=== PATIENT | female | born 1975 | race Caucasian/White ===

== ENCOUNTER → 2017-01-23 | Outpatient (CLI) | payer OTHER ==
[~2017-01-23] MED LIST: ATV/1 PO; BCPILLS PO; CLR10 PO; LEVO100T PO; MULT-506 PO; PANT40TA PO; POTA10CA28 PO; TOPI200T14 PO; TRAM-10 PO
--- NOTE | 2017-01-23 12:10 | DIAGNOSTIC IMAGING REPORT ---
THORACOLUMBAR SPINE 2 VIEWS CLINICAL HISTORY: LOW BACK PAIN @ [facility] BATTERY SITE COMPARISON STUDY: Lumbar spine fluoroscopic images July 29, 2016. FINDINGS: Spinal cord stimulator is noted with a left sided battery pack. The tip of the stimulator is at the mid T2 level. The electrode likely enters the canal at the T10-T11 level. This appears intact. There are cholecystectomy clips. Bowel gas pattern is normal. Postsurgical findings within the right hemithorax are noted. Vertebral body heights are maintained. Disc spaces are preserved. IMPRESSION: 1. Spinal cord stimulator, as described above. Stimulator appears intact with tip at the T2 level. 2. No significant abnormality of the thoracic or lumbar spine identified by radiography. Electronically signed by: French Fletcher M.D. 01/23/2017 12:08 PM Dictated Date/Time: 01/23/2017 12:04 PM
== END | disposition home or self-care (01) ==
LOC: C.RADBC 11:10
PROVIDERS: ATTEND Physician Assistant
DX: M54.5 Low back pain (principal)

== ENCOUNTER 2017-02-03 12:24 | Day surgery (SDC) | payer OTHER ==
[2017-01-28 14:27] VITALS: Ht 162.6 cm; Wt 88.6 kg
--- NOTE | 2017-01-30 08:45 | History and Physical ---
History & Physical Date of Service Jan 30, 2017. History & Physical Plan of care discussed with Dr. Taylor CHIEF COMPLAINT: Right sided intercostal neuralgia. HISTORY OF PRESENT ILLNESS: Mrs. Macedo is a 40 year old white female that is well known to the [facility] with a history of right sided intercostal neuralgia. The pain started immediately after a right lower lobe lobectomy was performed on 12/18/15. She describes a burning, aching and stabbing pain. Symptoms are aggravated by twisting and bending forwards. Her pain is moderately relieved with laying supine. Pain is rated 3/10 at its best and 7/10 at its worst. She denies any SOB, cough, abdominal pain, flank pain. PAST MEDICAL HISTORY: 1. Hypothyroidism 2. History of kidney stones 3. Migraine headache disorder 4. History of lung cancer 5. History of pneumothorax PAST SURGICAL HISTORY: 1. History of right lower lobe lobectomy 12/18/15 SOCIAL HISTORY: She is single and has 4 children. She lives with her parents. No tobacco, alcohol, or illicit substance use. WORK HISTORY: Currently on unpaid leave. 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 ALLERGIES: None MEDICATIONS: 1. Levothyroxine 100 g tablet daily 2. Ativan 1 mg every 6 hours as needed 3. control pill daily 4. Multivitamin daily 5. Protonix 40 mg daily 6. Potassium chloride 1 tablet daily 7. Topiramate 600 mg daily 8. Tramadol 50 mg 3 times daily as needed REVIEW OF SYSTEMS: Denies any constitutional, cardiac, pulmonary, neurological, GI, , extremity, endocrine, neuro, ENT, dermatological, or musculoskeletal complaints other than stated in HPI PHYSICAL EXAMINATION: VITAL SIGNS: Per admission GENERAL: Mrs. Macedo is a 41 y/o physically deconditioned white female that appears her stated age. Speech and cognition is intact. Mood and affect is appropriate. Sitting quietly in the exam room, in no acute distress. HEAD: Normocephalic; atraumatic. EYES: Pupils are round, equal, and reactive to light; EOM intact. CHEST: Regular chest respiration and excursion. There is tenderness of the intercostal muscles of the right anterior chest wall from approximately rib 6- 8. There is allodynia noted over the intercostal muscles. EXTREMITIES: Moves all extremities appropriately. BACK: Full ROM. There is no midline, SI joint, or facet joint tenderness. There is tenderness along the anchor site. No mobility of the spinal cord stimulator battery. NEURO: CN II-XII grossly intact with no focal deficits noted. Normal gait. SKIN: Well healed surgical incisions located along the mid axillary line superiorly and midclavicular line inferiorly. ASSESSMENT: Right sided intercostal neuralgia status post right lower lobe lobectomy TREATMENT: Mrs. Macedo is a 40 year old that developed right sided intercostal neuralgia immediately after a right lower lobe lobectomy which was performed December of 2015. Patient has failed numerous conservative treatments and subsequently received a spinal cord stimulator with pain relief. Over the last 4 weeks she has lost coverage into the chest wall and started to experience stimulation into her legs. There is reported pain along the left generator/ incision site that started over the same timeframe. X-ray did not show any lead migration. Reprogramming of the stimulator was able to capture coverage of the chest wall. The pain at the generator site is persistent and it has been recommended to revise the battery site as the anchor suture may have broken. Risks and benefits were reviewed with the patient. Procedure was explained and the patient would like to proceed with the procedure.
[~2017-02-03] VITALS: Ht 162.6 cm; Wt 88.6 kg
[~2017-02-03 12:24] MED LIST changes: +CEFAZOLIN 2000 MG/60 ML D5W IV SCH; -CLR10 PO; +LACTATED RINGER'S 1000ML 1,000 ML IV SCH
--- NOTE | 2017-02-03 12:54 | History & Physical Bridge Note ---
H&P Re-Evaluation Bridge Note: I have examined the patient, reviewed the History & Physical and in the interval since the performance of the History & Physical I have noted the following changes of clinical significance: No changes noted
[2017-02-03] MEDS ORDERED: CLR10 PO (12:55)
[2017-02-03 12:57] VITALS: BP 124/66; PULSE 85; TEMP 36.9; O2SAT 99
[2017-02-03] MEDS ORDERED: MIDAZOLAM HCL 1 MG/ML 2ML VIAL ONE ×2 (13:44→14:26)
[2017-02-03] MEDS ORDERED: FENTANYL CITRATE INJ 50 MCG/1 ML 2 ML VIAL ONE (13:44)
[2017-02-03] MEDS ORDERED: PROPOFOL IV EMULSION 10 MG/ML 20 ML VIAL IV ONE ×2 (13:44→14:39)
[2017-02-03] MEDS ORDERED: BUPIVACAINE/EPINEPHRINE 0.25% 1:200,000 30 ML VIAL ONE (13:48)
[2017-02-03] MEDS ORDERED: BACITRACIN 50000 UNIT VIAL ONE (13:48)
[2017-02-03] MEDS ORDERED: LIDO 2%/EPINEPHRINE 1:100000 20 ML VIAL INFIL ONE (13:48)
[2017-02-03] MEDS ORDERED: LIDOCAINE HCL 2% 2 ML VIAL (20MG/ML) ONE (14:26)
[2017-02-03 15:05] VITALS: BP 118/60; PULSE 69; TEMP 36.6; O2SAT 97
--- NOTE | 2017-02-03 15:05 | [facility] Post Operative Brief Note ---
Immediate Operative Summary Operative Date Feb 03, 2017. Pre-Operative Diagnosis Painful suture at anchor point Post-Operative Diagnosis Painful suture at anchor point Procedure(s) Performed Revision of Spinal Cord Stimulator [place] Surgeon Dr. Sapna Taylor Stand Up Comedian Surgeon(s) None Estimated Blood Loss 1 ml Findings uncomplicated suture removal Specimens None per surgeon Drains none Anesthesia IV sedation Complication(s) None Disposition Recovery Room / PACU
--- NOTE | 2017-02-03 15:12 | Operative Note-Pain Management ---
Pain Clinic Operative Note PREOPERATIVE DIAGNOSIS: Painful Suture at Spinal Cord Stimulator [place] POSTOPERATIVE DIAGNOSIS: Same. PROCEDURE PERFORMED: Excision two sutures at anchor point SURGEON: Dr. Sapna Taylor. ANESTHESIA: IV sedation and local. IV FLUIDS: Per anesthetic record ESTIMATED BLOOD LOSS: 1ml URINE OUTPUT: Not measured. The patient had a spinal cord stimulator generator with a painful suture at the anchor point. The patient was counseled extensively on the risks, benefits of the procedure including infection, headache, bleeding, damage to surrounding structures and wishes to proceed as above. The consent was witnessed and a time- out was performed. An IV was started in the preoperative area and the patient was brought to the Operating Room and placed in the prone position. The patient was given antibiotics IV prior to the start of the procedure. The patients thoracolumbar spine was prepped with Duraprep followed by Betadine solution and draped in a sterile fashion with sterile drapes and ioban. Next, 2% lidocaine with 1:200K epinephrine was utilized to anesthetize the skin and subcutaneous tissue for a pocket incision. Using a 10 blade scalpel, electrocautery and Metzenbaum scissors the old spinal cord stimulator battery was dissected and the 2 prolene sutures connecting the battery to the fascia were removed. Hemostasis was excellent and the pocket incision was irrigated with three bulb syringes with Bacitracin infused saline. The battery was then placed inside the pocket with retention loops behind the generator battery in the pocket incision. A single 0 silk suture connected the battery to the underlying tissues. The skin and subcutaneous tissues were then closed with running 0 V- loc sutures followed by running subcuticular 3-0 V-loc sutures. The incision and skin was cleansed and dried then Prineo dressing was placed over the incision site followed by dermabond. Next, after the dermabond had dried, 4 x 4 gauze and Tegaderms were placed. The patient was then emerged from IV sedation and the patient was placed back in the supine position. The patient was taken to the recovery room in stable condition without complications noted. The patient was sent home with standard discharge instructions and will follow up in the pain clinic in 14 days. I attest to the content of the Intraoperative Record and any orders documented therein. Any exceptions are noted below.
[2017-02-03] MEDS ORDERED: HYDROCODONE/ACETAMOPHEN 5/325MG TAB PO PRN (15:15)
--- NOTE | 2017-02-03 15:15 | Discharge Instructions ---
Discharge Instructions Date of Service Feb 03, 2017. Visit Reason for Visit: Spinal Cord Stimulator Generator Site Pain, Likely Discharge Discharge Diagnosis / Problem: Painful sutures the spinal cord stimulator anchor point Discharge Goals Goal(s): Decrease discomfort Activity Recommendations Activity Limitations: as noted below (no greater than 20lb lifting for 4 weeks. ) Exercise/Sports Limitations: rest today, until after follow-up appointment May Resume Sexual Activity: after follow-up appointment Shower/Bathe: may shower/bathe in 3 days, keep incision dry Driving or Machine Use: no limitations Anesthesia . Post Anesthesia Instructions: If you have had General Anesthesia or IV Sedation: * Do not drive today. * Resume driving when surgeon permits. * Do not make important decisions or sign legal documents today. * Call surgeon for: 1. Temperature elevations greater than 101 degrees F. 2. Uncontrollable pain. 3. Excessive bleeding. 4. Persistent nausea and vomiting. 5. Medication intolerance (nausea, vomiting or rash). * For nausea and vomiting use only clear liquids such as: tea, soda, bouillon until nausea subsides, then gradually increase diet as tolerated. * If you have any concerns or questions, call your surgeon's office. If physician is unavailable and it is an emergency, call 911 or go to the nearest emergency room. . Instructions / Follow-Up Instructions / Follow-Up Followup with the [facility] on 02/18/17 at 11:15am with Pat Herman PA-C Diet Recommendations Recommended Home Diet: no limitations, resume previous diet Procedures Procedures Performed: Revision of Spinal Cord Stimulator [place] Pending Studies Studies pending at discharge: no Medical Emergencies . Who to Call and When: Medical Emergencies: If at any time you feel your situation is an emergency, please call 911 immediately. . Non-Emergent Contact Non-Emergency issues call your: Primary Care Provider Call Non-Emergent contact if: you have a fever, your pain is not controlled, your pain is unusual for you, your pain is concerning you, wound has increased drainage, wound has increased redness, wound has increased pain, you have any medication questions . Past History Medical & Surgical History: (1) Lung cancer, lower lobe (2) Migraine headache (3) Hypothyroidism (4) Cough (5) UTI (urinary tract infection) (6) Post-thoracotomy pain syndrome (7) Diarrhea . "Provider Documentation" section prepared by Sapna Taylor. .
--- NOTE | 2017-02-03 15:32 | Anesthesiology Progress Note ---
Anesthesia Post Op Note Date & Time Feb 03, 2017 at 15:31 Vital Signs Pain Intensity: 1 Vital Signs Past 12 Hours Date Time Temp Pulse Resp B/P (MAP) Pulse Ox O2 Delivery O2 Flow Rate FiO2 02/03/17 12:57 36.9 85 18 124/66 (85) 99 Room Air Notes Mental Status: alert / awake / arousable, participated in evaluation Pt Amnestic to Procedure: Yes Nausea / Vomiting: adequately controlled Pain: adequately controlled Airway Patency, RR, SpO2: stable & adequate BP & HR: stable & adequate Hydration State: stable & adequate Anesthetic Complications: no major complications apparent
[2017-02-03 15:35] VITALS: BP 119/54; PULSE 74; O2SAT 98
== END 2017-02-03 16:10 | disposition home or self-care (01) ==
LOC: C.ACU 12:24
PROVIDERS: ATTEND Anesthesiology
DX: T81.89XA Other complications of procedures, not elsewhere classified, initial encounter (principal); Y83.1 Surgical operation with implant of artificial internal device as the cause of abnormal reaction of the patient, or of later complication, without mention of misadventure at the time of the procedure; G58.0 Intercostal neuropathy; E03.9 Hypothyroidism, unspecified; Z87.442 Personal history of urinary calculi; Z85.118 Personal history of other malignant neoplasm of bronchus and lung; Z90.2 Acquired absence of lung [part of]; Z98.890 Other specified postprocedural states; Z79.899 Other long term (current) drug therapy; Z79.3 Long term (current) use of hormonal contraceptives

== ENCOUNTER 2017-02-18 15:11 | Emergency (ER) | payer OTHER ==
[~2017-02-18] VITALS: Ht 162.6 cm; Wt 94.6 kg
[~2017-02-18 15:11] MED LIST changes: -CEFAZOLIN 2000 MG/60 ML D5W IV SCH; +CLR10 PO; -LACTATED RINGER'S 1000ML 1,000 ML IV SCH; -PANT40TA PO
[2017-02-18 15:28] VITALS: BP 125/81; PULSE 88; TEMP 36.9; O2SAT 100; Ht 162.6 cm; Wt 94.6 kg
== END 2017-02-18 16:20 | disposition left against medical advice (07) ==
LOC: C.EDB 15:18
DX: N20.0 Calculus of kidney (principal)